=== PATIENT | female | born 1975 | race American Indian/Alaskan Native ===

== ENCOUNTER 2016-07-30 03:20 | Emergency (ER) | payer MEDICAID ==
[2016-07-30 03:20] VITALS: BMI 29.7
[2016-07-30 03:39] VITALS: TEMP 98.1
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
[2016-07-30 05:05] VITALS: BP 130/80; PULSE 80; RESP 14
[2016-07-30 06:23] VITALS: O2SAT 97
== END 2016-07-30 05:05 | disposition home or self-care (01) ==
LOC: C.ER 03:20
DX: S80.12XA Contusion of left lower leg, initial encounter (principal); W50.1XXA Accidental kick by another person, initial encounter; Y93.9 Activity, unspecified; Y92.9 Unspecified place or not applicable

== ENCOUNTER 2016-09-15 01:17 | Emergency (ER) | payer MEDICAID ==
[2016-09-15 01:18] VITALS: BMI 29.7
[2016-09-15 01:42] VITALS: O2SAT 100
--- NOTE | 2016-09-15 01:59 | C.PDOC ---
History Of Present Illness Pt with chest pain which started yesterday. Dull aching non radiating discomfort. No f/c/n/v/ Speaking in complete sentence. Time Seen by Provider: 09/15/16 01:58 Chief Complaint (Nursing): Chest Pain History Per: Patient History/Exam Limitations: no limitations Onset/Duration Of Symptoms: Days (1) Current Symptoms Are (Timing): Still Present Context: Other Severity: Moderate Pain Scale Rating Of: 4 Quality: Dull, Aching Associated Symptoms: denies: Nausea, Dyspnea Modifying Factors: None Exacerbating Factors: None Alleviating Factors: None Recent travel outside of the [place]: No Additional History Per: Patient Past Medical History Reviewed: Historical Data, Nursing Documentation, Vital Signs Vital Signs: Last Vital Signs Temp 98.2 F 09/15/16 05:00 Pulse 68 09/15/16 05:00 Resp 16 09/15/16 05:00 BP 106/66 09/15/16 05:00 Pulse Ox 100 09/15/16 05:58 - Medical History PMH: Asthma - [facility] Procedures OTHER SKIN & SUBQ I D (06/30/13) Family History: States: No Known Family Hx - Social History Hx Tobacco Use: No Hx Alcohol Use: No Hx Substance Use: No - Immunization History Hx Tetanus Toxoid Vaccination: No Hx Influenza Vaccination: No Hx Pneumococcal Vaccination: No Review Of Systems Constitutional: Negative for: Fever, Chills Eyes: Negative for: Redness ENT: Negative for: Throat Pain Cardiovascular: Positive for: Chest Pain Respiratory: Negative for: Shortness of Breath Gastrointestinal: Negative for: Nausea, Vomiting, Abdominal Pain Genitourinary: Negative for: Dysuria Musculoskeletal: Negative for: Back Pain Skin: Negative for: Rash, Lesions, Jaundice Neurological: Negative for: Weakness Psych: Positive for: Anxiety Physical Exam - Physical Exam Appears: Non-toxic, No Acute Distress Skin: Warm, Dry Head: Normacephalic Eye(s): bilateral: Normal Inspection Oral Mucosa: Moist Neck: Supple Chest: Symmetrical Cardiovascular: Rhythm Regular Respiratory: No Rales, No Rhonchi, No Wheezing Gastrointestinal/Abdominal: Soft, No Tenderness, No Distention Back: Normal Inspection Extremity: Normal ROM Extremity: Bilateral: Atraumatic Pulses: Left Dorsalis Pedis: Normal, Right Dorsalis Pedis: Normal Neurological/Psych: Oriented x3, Normal Speech, Normal Cognition Gait: Steady ED Course And Treatment - Laboratory Results Result Diagrams: 09/15/16 02:39 09/15/16 02:39 ECG: Interpreted By Me, Viewed By Me ECG Rhythm: Sinus Rhythm (69), Nonspecific Changes O2 Sat by Pulse Oximetry: 100 Pulse Ox Interpretation: Normal - Radiology CXR: Interpreted by Me, Viewed By Me CXR Interpretation: No: Infiltrates, Fracture, Pnemothorax Progress Note: cardiac work up. No ASA given as pt is allergic(throat closing) Reevaluation Time: 05:57 Reassessment Condition: Improved Medical Decision Making Medical Decision Making: I considered the following diagnoses: acute coronary syndrome, pulmonary embolism, lower respiratory infection, aortic dissection/aneurysm, pneumothorax , pericarditis, esophagitis/GERD, zoster and esophageal rupture but found them to be unlikely based on the history, physical exam, and diagnostics. My conclusions regarding the unlikely diagnoses were based on: the absence of significant EKG abnormalities, the lack of suggestive x-ray findings, the absence of significant abnormalities on cardiac monitoring, the absence of asymmetric pulses. Pt is cp free and wants to go home Upon provider reevaluation patient is feeling better, is medically stable, and requires no further treatment in the ED at this time. Patient will be discharged home . Counseling was provided and all questions were answered regarding diagnosis and need for follow up with Dr Montes De Oca. There is agreement to discharge plan. Return if symptoms persist or worsen Disposition Counseled Patient/Family Regarding: Studies Performed, Diagnosis, Need For Followup - Disposition Referrals: Teddy Montes De Oca MD [Staff Provider] - Disposition: HOME/ ROUTINE Disposition Time: 01:59 Condition: FAIR Instructions: Chest Pain (DC) - Clinical Impression Clinical Impression: Chest pain
[2016-09-15 02:43] LABS: BASO % 0.6 % (0.0-2.0); EOS # 0.1 K/uL (0.0-0.7); EOS % 2.2 % (0.0-4.0); HEMATOCRIT 32.4 % (34.0-47.0); LYMPH # 1.4 K/uL (1.0-4.3); LYMPH % 34.8 % (20.0-40.0); MEAN CELL VOLUME 69.2 fL (81.0-99.0); MEAN CORPUSCULAR HEMOGLOBIN 21.5 pg (27.0-31.0); MEAN CORPUSCULAR HGB CONC 31.1 g/dL (33.0-37.0); MEAN PLATELET VOLUME 7.6 fL (7.2-11.7); MONO # 0.6 K/uL (0.0-0.8); MONO % 13.7 % (0.0-10.0); RED CELL DISTRIBUTION WIDTH 14.8 % (11.5-14.5); WHITE BLOOD COUNT 4.1 K/uL (4.8-10.8)
[2016-09-15 02:53] LABS: CHLORIDE 100 mmol/L (98-107); SODIUM 136 mmol/L (132-148)
[2016-09-15 02:54] LABS: POTASSIUM 4.2 mmol/L (3.6-5.2)
[2016-09-15 02:56] LABS: ALB/GLOB RATIO 1.2 (1.0-2.1); ALKALINE PHOSPHATASE 53 U/L (38-126); ALT/SGPT 20 U/L (9-52); AST/SGOT 18 U/L (14-36); BILIRUBIN,TOTAL 0.4 mg/dL (0.2-1.3); BLOOD UREA NITROGEN 18 mg/dL (7-17); CARBON DIOXIDE 27 mmol/L (22-30); GFR AFRICAN-AMERICAN > 60; TOTAL PROTEIN 6.9 g/dL (6.3-8.3)
[2016-09-15 02:57] LABS: CALCIUM 8.3 mg/dl (8.6-10.4); GLUCOSE,RANDOM 74 mg/dL (65-105)
[2016-09-15 04:16] VITALS: RESP 16
[2016-09-15 04:36] LABS: RBC URINE 2 /hpf (0-3); URINE BILIRUBIN NEGATIVE (NEGATIVE); URINE BLOOD NEGATIVE (NEGATIVE); URINE COLOR Yellow (YELLOW); URINE GLUCOSE (UA) NORMAL (Normal); URINE KETONE NEGATIVE (NEGATIVE); URINE LEUKOCYTE ESTERASE NEG Leu/uL (Negative); URINE PROTEIN NEGATIVE (NEGATIVE); WBC URINE 2 /hpf (0-5)
[2016-09-15 05:11] VITALS: BP 106/66; PULSE 68; TEMP 98.2
--- NOTE | 2016-09-15 12:41 | RAD ---
PROCEDURE: CHEST RADIOGRAPH, 1 VIEW HISTORY: chest pain COMPARISON: Comparison chest 12/01/2015 FINDINGS: LUNGS: Clear. PLEURA: No pneumothorax or pleural fluid seen. CARDIOVASCULAR: Normal. OSSEOUS STRUCTURES: No significant abnormalities. VISUALIZED UPPER ABDOMEN: Normal. OTHER FINDINGS: None. IMPRESSION: No active disease.
--- NOTE | 2016-09-21 17:01 | CARD ---
APPROVED REPORT EKG Measurement Heart [id number] NH 108P50 [id number] <Conclusion> Sinus rhythm with short NH Borderline ECG
== END 2016-09-15 06:13 | disposition home or self-care (01) ==
LOC: C.ER 01:17
DX: R07.9 Chest pain, unspecified (principal)

== ENCOUNTER 2016-12-01 20:33 | Emergency (ER) | payer MEDICAID ==
[2016-12-01 20:34] VITALS: BMI 29.7
[2016-12-01 20:47] VITALS: TEMP 97.5
[2016-12-01 21:23] LABS: BASO % 0.1 % (0.0-2.0); EOS # 0.1 K/uL (0.0-0.7); EOS % 1.6 % (0.0-4.0); HEMATOCRIT 34.6 % (34.0-47.0); LYMPH # 1.1 K/uL (1.0-4.3); LYMPH % 26.3 % (20.0-40.0); MEAN CELL VOLUME 69.3 fL (81.0-99.0); MEAN CORPUSCULAR HEMOGLOBIN 21.9 pg (27.0-31.0); MEAN CORPUSCULAR HGB CONC 31.7 g/dL (33.0-37.0); MEAN PLATELET VOLUME 8.1 fL (7.2-11.7); MONO # 0.4 K/uL (0.0-0.8); MONO % 8.6 % (0.0-10.0); RED CELL DISTRIBUTION WIDTH 15.3 % (11.5-14.5); WHITE BLOOD COUNT 4.3 K/uL (4.8-10.8)
[2016-12-01 21:30] LABS: RBC URINE 1 /hpf (0-3); URINE BACTERIA RARE (<OCC); URINE BILIRUBIN NEGATIVE (NEGATIVE); URINE BLOOD NEGATIVE (NEGATIVE); URINE COLOR Yellow (YELLOW); URINE GLUCOSE (UA) NORMAL (Normal); URINE KETONE NEGATIVE (NEGATIVE); URINE LEUKOCYTE ESTERASE NEG Leu/uL (Negative); URINE PROTEIN NEGATIVE (NEGATIVE); URINE UROBILINOGEN NORMAL mg/dL (0.2-1.0); WBC URINE 1 /hpf (0-5)
[2016-12-01 21:33] LABS: CHLORIDE 98 mmol/L (98-107); SODIUM 139 mmol/L (132-148)
[2016-12-01 21:34] LABS: POTASSIUM 3.8 mmol/L (3.6-5.2)
[2016-12-01 21:35] LABS: GFR AFRICAN-AMERICAN > 60
[2016-12-01 21:36] LABS: ALB/GLOB RATIO 1.1 (1.0-2.1); ALKALINE PHOSPHATASE 53 U/L (38-126); ALT/SGPT 27 U/L (9-52); AST/SGOT 21 U/L (14-36); BILIRUBIN,TOTAL 0.7 mg/dL (0.2-1.3); BLOOD UREA NITROGEN 12 mg/dL (7-17); CALCIUM 8.9 mg/dl (8.6-10.4); CARBON DIOXIDE 29 mmol/L (22-30); GLUCOSE,RANDOM 92 mg/dL (65-105); TOTAL PROTEIN 7.3 g/dL (6.3-8.3)
--- NOTE | 2016-12-01 22:06 | C.PDOC ---
History Of Present Illness 41 year old female presents to the ER with a complaint of right sided, anterior shoulder pain for the past 1 week that radiates down the right arm and worsens with movement. Patient also reports having an episode of sharp left sided chest pain [place] the [place]; pain was not associated twith any other symptoms, and resolved after several seconds. Patient denies SOB, cough, fever, palpitations, Hx of cardiac disease (herself/her family), use of OCPs, recent surgery/airplane travel/ immobilization. Time Seen by Provider: 12/01/16 20:46 Chief Complaint (Nursing): Chest Pain History Per: Patient History/Exam Limitations: no limitations Onset/Duration Of Symptoms: Days Current Symptoms Are (Timing): Still Present Severity: Mild Quality: Sharp Associated Symptoms: denies: Nausea, Dyspnea, Diaphoresis, Syncope Modifying Factors: None Exacerbating Factors: Movement Alleviating Factors: None Recent travel outside of the [place]: No Past Medical History Reviewed: Historical Data, Nursing Documentation, Vital Signs Vital Signs: Last Vital Signs Temp 97.5 F L 12/01/16 20:45 Pulse 75 12/01/16 22:37 Resp 16 12/01/16 22:37 BP 106/69 12/01/16 22:37 Pulse Ox 98 12/01/16 22:37 - Medical History PMH: Asthma Surgical History: No Surg Hx - [facility] Procedures OTHER SKIN & SUBQ I D (06/30/13) Family History: States: No Known Family Hx - Social History Hx Tobacco Use: No Hx Alcohol Use: No Hx Substance Use: No - Immunization History Hx Tetanus Toxoid Vaccination: No Hx Influenza Vaccination: No Hx Pneumococcal Vaccination: No Review Of Systems Except As Marked, All Systems Reviewed And Found Negative. Constitutional: Negative for: Fever, Chills Cardiovascular: Positive for: Chest Pain. Negative for: Palpitations Respiratory: Negative for: Cough, Shortness of Breath Gastrointestinal: Negative for: Nausea, Vomiting, Abdominal Pain, Diarrhea Musculoskeletal: Positive for: Shoulder Pain, Arm Pain Skin: Negative for: Rash Neurological: Negative for: Weakness, Numbness Physical Exam - Physical Exam Appears: Well, Non-toxic, No Acute Distress Skin: Normal Color, Warm, Dry, No Rash Head: Normacephalic Oral Mucosa: Moist Chest: Symmetrical, No Tenderness Cardiovascular: Rhythm Regular Respiratory: Normal Breath Sounds, No Rales, No Rhonchi, No Wheezing Gastrointestinal/Abdominal: Normal Exam, Bowel Sounds, Soft, No Tenderness Extremity: Tenderness (Mildly TTP at right anterior shoulder, worsens with movement of shoulder), No Calf Tenderness, Capillary Refill (< 2 sec all digits) , No Deformity, No Swelling, Other ((-) swelling/erythyema) Extremity: Bilateral: Normal Color And Temperature Pulses: Left Radial: Normal, Right Radial: Normal Neurological/Psych: Oriented x3, Normal Motor, Normal Sensation ED Course And Treatment - Laboratory Results Result Diagrams: 12/01/16 21:20 12/01/16 21:20 ECG: Interpreted By Me, Viewed By Me (sinus rhythm 70 bpm, normal axis, no acute ST/T wave changes) ECG Interpretation: Normal O2 Sat by Pulse Oximetry: 97 (Room air) Pulse Ox Interpretation: Normal - Radiology CXR: Interpreted by Me, Viewed By Me CXR Interpretation: Yes: No Acute Disease. No: Infiltrates - Other Rad right shoulder Xray X-Ray: Interpreted by Me, Viewed By Me (no fractures/dislocations) Progress Note: Blood work, CXR and right shoulder Xray ordered and reviewed. Patient given PO tylenol + flexeril. Reevaluation Time: 22:25 Reassessment Condition: Improved (Patient reassessed, pain has improved and patient states she is feeling better. Xrays (-) for acute bony injury, and EKG WNL. Blood work, including d-dimer, unremarkable. Patient discharged home with Rxs for tylenol and flexeril. He was instructed to follow up with orthopedics within 1 week, and she understands she should return to ED if symptoms worsen.) Disposition Counseled Patient/Family Regarding: Studies Performed, Diagnosis, Need For Followup, Rx Given - Disposition Referrals: Shirin Abraham MD [Staff Provider] - [facility] [Outside] Teddy Montes De Oca MD [Staff Provider] - Disposition: HOME/ ROUTINE Disposition Time: 22:25 Condition: STABLE Additional Instructions: FOLLOW UP WITH YOUR DOCTOR IN 1-2 DAYS, AND WITH ORTHOPEDICS WITHIN 1 WEEK USE MEDICATIONS NEEDED RETURN TO ER IF SYMPTOMS WORSEN Prescriptions: Acetaminophen [Tylenol 325mg tab] 650 mg PO Q6 PRN #30 tab PRN Reason: pain/fever Cyclobenzaprine [Cyclobenzaprine HCl] 10 mg PO BID PRN #15 tab PRN Reason: Muscle Spasm Instructions: Shoulder Sprain (ED), Noncardiac Chest Pain (ED) Forms: [facility] (Indian) Print Language: TANZANIAN - POA Present On Arrival: None - Clinical Impression Clinical Impression: Right shoulder pain, Non-cardiac chest pain - Scribe Statement The provider has reviewed the documentation as recorded by the Scribe Hector Moreno All medical record entries made by the Norbertoibe were at my direction and personally dictated by me. I have reviewed the chart and agree that the record accurately reflects my personal performance of the history, physical exam, medical decision making, and the department course for this patient. I have also personally directed, reviewed, and agree with the discharge instructions and disposition.
[2016-12-01 22:38] VITALS: BP 106/69; PULSE 75; RESP 16
--- NOTE | 2016-12-02 08:23 | RAD ---
HISTORY: cp COMPARISON: Chest x-ray performed 09/15/16 TECHNIQUE: Chest, one view. FINDINGS: Examination limited by habitus. LUNGS: No focal consolidation. Please note that chest x-ray has limited sensitivity for the detection of pulmonary masses. PLEURA: No significant pleural effusion identified. No definite pneumothorax . CARDIOVASCULAR: The cardiomediastinal silhouette appears within normal limits of size. OSSEOUS STRUCTURES: No acute osseous abnormality identified. VISUALIZED UPPER ABDOMEN: Unremarkable. OTHER FINDINGS: None. IMPRESSION: No focal consolidation, significant pleural effusion, or definite pneumothorax identified.
--- NOTE | 2016-12-02 08:24 | RAD ---
PROCEDURE: Radiographs of the Right Shoulder HISTORY: right shoulder pain COMPARISON: None available. FINDINGS: BONES: No acute displaced fracture. The distal clavicle and underlying ribs appear intact. JOINTS: No acute dislocation. SOFT TISSUES: Soft tissues appear unremarkable. No evidence of radiopaque foreign body. IMPRESSION: No acute displaced fracture or dislocation evident. If symptoms persist or if there is continued clinical concern, x-ray follow-up in 7-10 days should be considered.
--- NOTE | 2016-12-04 17:41 | CARD ---
APPROVED REPORT EKG Measurement Heart [id number] GA 110P56 [id number] <Conclusion> Sinus rhythm with short GA Possible Left atrial enlargement Borderline ECG
[2016-12-06 17:12] VITALS: O2SAT 97
== END 2016-12-01 22:37 | disposition home or self-care (01) ==
LOC: C.ER 20:33
DX: R07.89 Other chest pain (principal); M25.511 Pain in right shoulder

== ENCOUNTER 2017-01-15 20:01 | Emergency (ER) | payer MEDICAID ==
[2017-01-15 20:01] VITALS: BMI 29.7
[2017-01-15 20:16] VITALS: O2SAT 100
[2017-01-15 20:36] LABS: HEMATOCRIT 34.9 % (34.0-47.0); MEAN CELL VOLUME 69.8 fL (81.0-99.0); MEAN CORPUSCULAR HEMOGLOBIN 22.1 pg (27.0-31.0); MEAN CORPUSCULAR HGB CONC 31.7 g/dL (33.0-37.0); MEAN PLATELET VOLUME 7.9 fL (7.2-11.7); RED CELL DISTRIBUTION WIDTH 14.6 % (11.5-14.5); WHITE BLOOD COUNT 4.4 K/uL (4.8-10.8)
[2017-01-15 20:47] LABS: CHLORIDE 98 mmol/L (98-107); POTASSIUM 4.5 mmol/L (3.6-5.2); SODIUM 137 mmol/L (132-148)
[2017-01-15 20:50] LABS: ALB/GLOB RATIO 1.1 (1.0-2.1); ALKALINE PHOSPHATASE 45 U/L (38-126); ALT/SGPT 23 U/L (9-52); AST/SGOT 23 U/L (14-36); BILIRUBIN,TOTAL 0.7 mg/dL (0.2-1.3); BLOOD UREA NITROGEN 15 mg/dL (7-17); CALCIUM 8.9 mg/dl (8.6-10.4); CARBON DIOXIDE 25 mmol/L (22-30); GFR AFRICAN-AMERICAN > 60; GLUCOSE,RANDOM 86 mg/dL (65-105); TOTAL PROTEIN 7.9 g/dL (6.3-8.3)
[2017-01-15] MEDS ORDERED: Sodium Chloride 0.9% 1,000 ML IV ONE (20:58)
[2017-01-15 20:59] LABS: RBC URINE 1 /hpf (0-3); URINE BILIRUBIN NEGATIVE (NEGATIVE); URINE BLOOD NEGATIVE (NEGATIVE); URINE COLOR Yellow (YELLOW); URINE GLUCOSE (UA) NORMAL (Normal); URINE KETONE NEGATIVE (NEGATIVE); URINE LEUKOCYTE ESTERASE NEG Leu/uL (Negative); URINE PROTEIN NEGATIVE (NEGATIVE); URINE UROBILINOGEN NORMAL mg/dL (0.2-1.0); WBC URINE < 1 /hpf (0-5)
--- NOTE | 2017-01-15 21:05 | C.PDOC ---
History Of Present Illness Patient gave a history ofon and off abd pain in the upper abd area with accompanying symptom of difficulty swallowing.Denies any chest pain.No n/V. No diarrhea.. Chief Complaint (Nursing): Abdominal Pain History Per: Patient History/Exam Limitations: no limitations Onset/Duration Of Symptoms: Days, Intermittent Episodes Current Symptoms Are (Timing): Still Present Severity: Moderate Pain Scale Rating Of: 3 Location Of Pain/Discomfort: Epigastric Radiation Of Pain To:: None Quality Of Discomfort: Burning, Other (difficultyswallowing) Associated Symptoms: denies: Fever, Chills, Nausea, Vomiting, Diarrhea, Loss Of Appetite, Back Pain, Constipation, Urinary Symptoms Exacerbating Factors: Food. denies: Cough Alleviating Factors: denies: None Last Bowel Movement: Today Recent travel outside of the [place]: No Additional History Per: Patient Abnormal Vaginal Bleeding: No Past Medical History Vital Signs: Last Vital Signs Temp 97.8 F 01/16/17 00:03 Pulse 60 01/16/17 00:03 Resp 20 01/16/17 00:03 BP 110/74 01/16/17 00:03 Pulse Ox 100 01/16/17 00:03 - Medical History PMH: Asthma Denies: Chronic Kidney Disease Surgical History: No Surg Hx - [facility] Procedures OTHER SKIN & SUBQ I D (06/30/13) Family History: States: Unknown Family Hx - Social History Hx Tobacco Use: No Hx Alcohol Use: No Hx Substance Use: No - Immunization History Hx Tetanus Toxoid Vaccination: No Hx Influenza Vaccination: No Hx Pneumococcal Vaccination: No Review Of Systems Constitutional: Negative for: Fever, Chills, Sweats, Weakness, Malaise, Weight loss Eyes: Negative for: Pain, Vision Change, Conjunctivae Inflammation Cardiovascular: Negative for: Chest Pain, Palpitations, Orthopnea, Paroxysmal Noc. Dyspnea Respiratory: Negative for: Cough, Shortness of Breath, Hemoptysis, SOB with Excertion Gastrointestinal: Positive for: Other (occa. difficulty swallowing). Negative for: Nausea, Vomiting, Abdominal Pain Genitourinary: Negative for: Dysuria, Frequency, Incontinence Musculoskeletal: Negative for: Neck Pain, Shoulder Pain, Arm Pain Skin: Negative for: Rash, Lesions Neurological: Negative for: Weakness, Numbness, Incoordination, Change in Speech Psych: Negative for: Anxiety, Depression, Psychosis, Suicidal ideation Physical Exam - Physical Exam Appears: Well, Non-toxic, No Acute Distress Skin: Normal Color, Warm, Dry Eye(s): bilateral: Normal Inspection, PERRL, EOMI Nose: Normal Oral Mucosa: Moist, No Dry Tongue: Normal Appearing Teeth: Normal Dentition Gingiva: Normal Appearing Throat: Normal Neck: Normal Chest: Symmetrical, No Deformity, No Tenderness Cardiovascular: Rhythm Regular Respiratory: Normal Breath Sounds Gastrointestinal/Abdominal: Tenderness (epigatric area tenderness), No Organomegaly, No Distention, No Guarding, No Rebound Back: Normal Inspection Extremity: Normal ROM ED Course And Treatment - Laboratory Results Result Diagrams: 01/15/17 20:31 01/15/17 20:31 O2 Sat by Pulse Oximetry: 100 Disposition Counseled Patient/Family Regarding: Diagnosis - Disposition Referrals: [facility] [Outside] Disposition: HOME/ ROUTINE Disposition Time: 00:22 Condition: STABLE Prescriptions: Dicyclomine [Dicyclomine HCl] 10 mg PO TID #14 cap Famotidine [Pepcid] 20 mg PO BID #20 tab Instructions: Abdominal Pain (ED), Gastritis (GEN) Forms: [facility] (Honduran) - POA Present On Arrival: None - Clinical Impression Clinical Impression: Abdominal pain, Gastritis
[2017-01-15] MEDS ORDERED: Sodium Chloride 0.9% 1,000 ML ONE (21:08)
[2017-01-15] MEDS ORDERED: Iohexol 240 (50 ml) ONE (21:29)
[2017-01-15] MEDS ORDERED: Iohexol 240 (50 ml) PO ONE (21:30)
[2017-01-15] MEDS ORDERED: Iodixanol 320 MG/ML 100 ML BOTTLE IV ONE (21:32)
--- NOTE | 2017-01-16 00:04 | CT ---
EXAM: CT Abdomen and Pelvis With Intravenous Contrast CLINICAL HISTORY: 41 years old, female; Pain; Abdominal pain; Epigastric; Other: SOB; Additional info: Upper abd pain/ tendeness TECHNIQUE: Axial computed tomography images of the abdomen and pelvis with intravenous contrast. All CT scans at this facility use one or more dose reduction techniques, viz.: automated exposure control; ma/kV adjustment per patient size (including targeted exams where dose is matched to indication; i.e. head); or iterative reconstruction technique. Coronal and sagittal reformatted images were created and reviewed. CONTRAST: 100 mL of visipaque 320 administered intravenously. COMPARISON: No relevant prior studies available. Reference is made to a report from 06/26/2012. FINDINGS: Lower thorax: The bilateral lung bases are clear. ABDOMEN: Liver: Steatosis. Gallbladder and bile ducts: The gallbladder is decompressed. No calcified stones. No significant intra- or extrahepatic biliary ductal dilation. Pancreas: Enhances homogeneously. No ductal dilation. No discrete mass. Spleen: No acute findings. Adrenals: No acute findings. Kidneys and ureters: No acute findings. No hydronephrosis or renal calculi. No discrete solid mass. PELVIS: Bladder: No acute findings. Reproductive: No acute findings. Appendix: The air filled appendix is of normal caliber (series 2, image 85) . ABDOMEN and PELVIS: Stomach and bowel: Oral contrast extends to the level of the distal small bowel, without obstruction. No mucosal thickening. Peritoneum: No significant fluid collection. No free air. Lymph nodes: No pathologically enlarged lymph nodes. Vasculature: Unremarkable. Bones: No acute fracture. IMPRESSION: Fatty infiltration of the liver. Otherwise, unremarkable CT examination of the abdomen and pelvis, as detailed above. EXAM: CT Chest With Intravenous Contrast CLINICAL HISTORY: 41 years old, female; Pain; Abdominal pain; Epigastric; Other: SOB; Additional info: Upper abd pain/ tendeness TECHNIQUE: Axial computed tomography images of the chest with intravenous contrast. All CT scans at this facility use one or more dose reduction techniques, viz.: automated exposure control; ma/kV adjustment per patient size (including targeted exams where dose is matched to indication; i.e. head); or iterative reconstruction technique. Coronal and sagittal reformatted images were created and reviewed. CONTRAST: 100 mL of visipaque 320 administered intravenously. COMPARISON: None FINDINGS: Lungs: No mass. No consolidation. Pleural spaces: No significant effusion. No pneumothorax. Heart: No cardiomegaly. No significant pericardial effusion. Vasculature: No aortic aneurysm. Lymph nodes: No enlarged lymph nodes. Bones: No acute fracture. IMPRESSION: No acute findings to account for patient's symptoms, as detailed above.
[2017-01-16 00:05] VITALS: BP 110/74; PULSE 60; RESP 20; TEMP 97.8
== END 2017-01-16 00:33 | disposition home or self-care (01) ==
LOC: C.ER 20:01
DX: K29.70 Gastritis, unspecified, without bleeding (principal); R10.9 Unspecified abdominal pain
CPT/HCPCS: 71260; 74177; 80053; 81001; 83690; 84703; 85027; 96374; 99284; J7040; Q9966; Q9967

== ENCOUNTER 2017-02-04 09:40 | Emergency (ER) | payer MEDICAID ==
[2017-02-04 09:40] VITALS: BMI 29.7
[2017-02-04 09:52] VITALS: BP 104/72; PULSE 81; RESP 18; TEMP 98; O2SAT 100
--- NOTE | 2017-02-04 10:25 | C.PDOC ---
History Of Present Illness 41 year old female presents to the ED for evaluation of new onset left hand swelling x 3 days. Patient states she wears cotton gloves overlying latex gloves at work. Patient suspects possible allergen exposure while at new job. Patient states symptoms resolve at night but recurs after work day. Patient denies trauma or other associated symptoms. Patient has history of multiple foot allergies. NEW ONSET L HAND SWELL X 3 DAYS. PS WEARS COTTON GLOVES W OVERLYING LATEX GLOVES @ WORK. POSSIBLE ALLERGEN EXPOSURE WHILE AT NEW JOB? RESOLVES AT NIGHT BUT RECURS AFTER WORK DAY. NO TRAUMA, OTHER ASSOC SX. HO MULT FOOT ALLERGIES EXAM NAD EXT L HAND +MOD SWELL DORSAL TO WRIST. NO FOCAL TEND. LIMTIED ROM DUE TO PAIN FROM SWELLING. ATRAUM SKIN INTACT NO ERYTHEMA MDM ADVISED TO TRY NONLATEX GLOVES. PREDNISONE Time Seen by Provider: 02/04/17 10:13 Chief Complaint (Nursing): Finger,Hand,&Wrist History Per: Patient History/Exam Limitations: no limitations Onset/Duration Of Symptoms: Days (3), Sudden Onset Current Symptoms Are (Timing): Still Present Additional History Per: Patient Past Medical History Reviewed: Historical Data, Nursing Documentation, Vital Signs Vital Signs: Last Vital Signs Temp 98 F 02/04/17 09:50 Pulse 81 02/04/17 09:50 Resp 18 02/04/17 09:50 BP 104/72 02/04/17 09:50 Pulse Ox 100 02/04/17 10:27 - Medical History PMH: Asthma Surgical History: No Surg Hx - [facility] Procedures OTHER SKIN & SUBQ I D (06/30/13) Family History: States: Unknown Family Hx - Social History Hx Tobacco Use: No Hx Alcohol Use: No Hx Substance Use: No - Immunization History Hx Tetanus Toxoid Vaccination: No Hx Influenza Vaccination: No Hx Pneumococcal Vaccination: No Review Of Systems Musculoskeletal: Positive for: Hand Pain (left ) Physical Exam - Physical Exam Appears: Non-toxic, No Acute Distress Skin: Normal Color, Warm, Dry, Other (skin intact, no erythema ) Head: Atraumatic, Normacephalic Eye(s): bilateral: Normal Inspection Oral Mucosa: Moist Neck: Supple Extremity: No Normal ROM (limited in left hand secondat to pain from swelling ) , No Tenderness (focal ), Capillary Refill (less than 2 seconds ), Swelling ( moderate, to dorsal aspect of left wrist ) Extremity: Left: Atraumatic Neurological/Psych: Oriented x3, Normal Speech, Normal Cognition Gait: Steady ED Course And Treatment O2 Sat by Pulse Oximetry: 100 (on RA) Pulse Ox Interpretation: Normal Progress Note: Prednisone PO administered. Medical Decision Making Medical Decision Making: ADVISED TO TRY NONLATEX GLOVES. 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 - Scribe Statement The provider has reviewed the documentation as recorded by the Scribe Provider Attestation: All medical record entries made by the Scribe were at my direction and personally dictated by me. I have reviewed the chart and agree that the record accurately reflects my personal performance of the history, physical exam, medical decision making, and the department course for this patient. I have also personally directed, reviewed, and agree with the discharge instructions and disposition.
== END 2017-02-04 10:40 | disposition home or self-care (01) ==
LOC: C.ER 09:40
DX: L23.9 Allergic contact dermatitis, unspecified cause (principal)

== ENCOUNTER 2017-09-29 18:38 | Emergency (ER) | payer MEDICAID ==
[2017-09-29 18:39] VITALS: BMI 29.7
[2017-09-29 18:44] VITALS: PULSE 90; RESP 20; TEMP 98.7; O2SAT 100
[2017-09-29 19:21] VITALS: BP 101/66
--- NOTE | 2017-09-29 19:22 | C.PDOC ---
History Of Present Illness 42 year old female presents to the emergency department with complaints of left shoulder pain and right elbow pain. Patient reports that a gate door fell on her left shoulder today. She also complains of right elbow pain which has persisted for the past month after hitting it. She complains of pain upon extension of the elbow. No change in sensation. No head injury. RIght hand dominant. 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 Time Seen by Provider: 09/29/17 19:01 Chief Complaint (Nursing): Upper Extremity Problem/Injury History Per: Patient History/Exam Limitations: no limitations Onset/Duration Of Symptoms: Hrs Current Symptoms Are (Timing): Still Present Quality: "Pain" Exacerbating Factor(s): Movement Past Medical History Reviewed: Historical Data, Nursing Documentation, Vital Signs Vital Signs: Last Vital Signs Temp 98.7 F 09/29/17 18:42 Pulse 90 09/29/17 18:42 Resp 20 09/29/17 18:42 BP 101/66 09/29/17 19:21 Pulse Ox 100 09/29/17 19:25 - Medical History PMH: Asthma Denies: Chronic Kidney Disease Surgical History: No Surg Hx - [facility] Procedures OTHER SKIN & SUBQ I D (06/30/13) Family History: States: No Known Family Hx - Social History Hx Tobacco Use: No Hx Alcohol Use: No Hx Substance Use: No - Immunization History Hx Tetanus Toxoid Vaccination: No Hx Influenza Vaccination: No Hx Pneumococcal Vaccination: No Review Of Systems Except As Marked, All Systems Reviewed And Found Negative. Musculoskeletal: Positive for: Shoulder Pain (left), Arm Pain (right) Physical Exam - Physical Exam Appears: Well, Non-toxic, No Acute Distress Skin: Normal Color, Warm, Dry Head: Atraumatic, Normacephalic Eye(s): bilateral: Normal Inspection, EOMI Nose: Normal Oral Mucosa: Moist Neck: Normal, Supple Chest: Symmetrical Respiratory: No Accessory Muscle Use Extremity: Normal ROM, Tenderness ((+) right posterior elbow tenderness (+) left anterior shoulder tenderness), Capillary Refill (<2 sec), No Swelling Extremity: Bilateral: Atraumatic, Normal Color And Temperature, Normal ROM Pulses: Left Radial: Normal, Right Radial: Normal Neurological/Psych: Oriented x3, Normal Speech, Normal Cognition, Normal Motor ( 5/5 against resistance), Normal Sensation ED Course And Treatment O2 Sat by Pulse Oximetry: 100 (RA) Pulse Ox Interpretation: Normal - Other Rad Right elbow XR X-Ray: Interpreted by Me, Viewed By Me Interpretation: No fx or dislocation Left shoulder XR X-Ray: Interpreted by Me, Viewed By Me Interpretation: no fx or dislocation Progress Note: Plan: Tylenol 650mg PO. Lyndon wrap applied on elbow. Instructed RICE and f/u with ortho in 1-2 days. Disposition - Disposition Referrals: Benson Tristan III, MD [Staff Provider] - Disposition: HOME/ ROUTINE Disposition Time: 18:20 Condition: STABLE Additional Instructions: Rest and ice the area. Follow up with PMD in 1-2 days. Return to ER if symptoms persist or worsen. 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 - Scribe Statement The provider has reviewed the documentation as recorded by the Scribe (Nate Alba) All medical record entries made by the Scribe were at my direction and personally dictated by me. I have reviewed the chart and agree that the record accurately reflects my personal performance of the history, physical exam, medical decision making, and the department course for this patient. I have also personally directed, reviewed, and agree with the discharge instructions and disposition.
--- NOTE | 2017-09-29 19:23 | C.PDOC ---
Time Seen by Provider: 09/29/17 19:01 Chief Complaint (Nursing): Upper Extremity Problem/Injury Past Medical History Vital Signs: Last Vital Signs Temp 98.7 F 09/29/17 18:42 Pulse 90 09/29/17 18:42 Resp 20 09/29/17 18:42 BP 101/66 09/29/17 19:21 Pulse Ox 100 09/29/17 18:42 - Medical History PMH: Asthma Denies: Chronic Kidney Disease - [facility] Procedures OTHER SKIN & SUBQ I D (06/30/13) Family History: States: Unknown Family Hx - Social History Hx Tobacco Use: No Hx Alcohol Use: No Hx Substance Use: No - Immunization History Hx Tetanus Toxoid Vaccination: No Hx Influenza Vaccination: No Hx Pneumococcal Vaccination: No ED Course And Treatment O2 Sat by Pulse Oximetry: 100 Disposition - Disposition Referrals: Benson Tristan III, MD [Staff Provider] - Disposition: HOME/ ROUTINE Disposition Time: 19:22 Additional Instructions: Rest and ice the area. Follow up with PMD in 1-2 days. Return to ER if symptoms persist or worsen. Instructions: Shoulder Sprain
--- NOTE | 2017-09-30 09:30 | RAD ---
PROCEDURE: Radiographs of the Left Shoulder HISTORY: trauma COMPARISON: No prior. FINDINGS: BONES: Normal. No fracture. JOINTS: Normal. Glenohumeral and acromioclavicular joints preserved. No osteoarthritis. SOFT TISSUES: Normal. OTHER FINDINGS: None. IMPRESSION: Normal radiographs of the left shoulder.
--- NOTE | 2017-09-30 09:31 | RAD ---
PROCEDURE: Radiographs of the right elbow. HISTORY: trauma COMPARISON: No prior. FINDINGS: BONES: Normal. No fracture. JOINTS: Normal. No osteoarthritis. SOFT TISSUES: Normal. JOINT EFFUSION: None. OTHER FINDINGS: None. IMPRESSION: Unremarkable radiographs of the right elbow.
== END 2017-09-29 19:32 | disposition home or self-care (01) ==
LOC: C.ER 18:38
DX: S40.012A Contusion of left shoulder, initial encounter (principal); W20.8XXA Other cause of strike by thrown, projected or falling object, initial encounter; M77.9 Enthesopathy, unspecified

== ENCOUNTER 2018-01-30 09:30 | Emergency (ER) | payer MEDICAID ==
[2018-01-30 09:30] VITALS: BMI 29.7
--- NOTE | 2018-01-30 09:51 | C.PDOC ---
History Of Present Illness 42 y/o female presents to the ED with digitally and positionally reproducible chest pain for the last few days, worsened this morning. She denies recent fall or trauma. States she frequently lifts heavy objects. Denies associated SOB or palpitations. No sub-sternal chest pressure. Otherwise patient denies any fever, chills, diaphoresis, abdominal pain, nausea, vomiting, URI symptoms, or other associated complaints. Time Seen by Provider: 01/30/18 09:41 Chief Complaint (Nursing): Chest Pain History Per: Patient History/Exam Limitations: no limitations Onset/Duration Of Symptoms: Days Current Symptoms Are (Timing): Still Present Past Medical History Reviewed: Historical Data, Nursing Documentation, Vital Signs - Medical History PMH: Asthma Denies: Chronic Kidney Disease - [facility] Procedures OTHER SKIN & SUBQ I D (06/30/13) Family History: States: Unknown Family Hx - Social History Hx Tobacco Use: No Hx Alcohol Use: No Hx Substance Use: No - Immunization History Hx Tetanus Toxoid Vaccination: No Hx Influenza Vaccination: No Hx Pneumococcal Vaccination: No Review Of Systems Except As Marked, All Systems Reviewed And Found Negative. Constitutional: Negative for: Fever, Chills, Sweats Eyes: Negative for: Vision Change Cardiovascular: Positive for: Chest Pain. Negative for: Palpitations, Light Headedness Respiratory: Negative for: Cough, Shortness of Breath Gastrointestinal: Negative for: Nausea, Vomiting Musculoskeletal: Negative for: Arm Pain Skin: Negative for: Rash Neurological: Negative for: Weakness, Dizziness Physical Exam - Physical Exam Appears: Non-toxic, No Acute Distress Skin: Normal Color, Warm, Dry, No Rash Head: Atraumatic, Normacephalic Eye(s): bilateral: Normal Inspection, PERRL, EOMI Neck: Normal ROM Chest: No Deformity, Tenderness (Digitally reproducible pain to the bilateral parasternal areas, increased to left lower border), Other (No skin changes, no rash) Cardiovascular: Rhythm Regular, No Murmur Respiratory: Normal Breath Sounds, No Rales, No Rhonchi, No Wheezing Gastrointestinal/Abdominal: Soft, No Tenderness, No Distention, No Guarding Extremity: Bilateral: Atraumatic, Normal Color And Temperature, Normal ROM Pulses: Left Dorsalis Pedis: Normal, Right Dorsalis Pedis: Normal Neurological/Psych: Oriented x3, Normal Speech Additional Physical Exam Comments: Pony Trimmer: ED RN Maryann ED Course And Treatment ECG: Interpreted By Me ECG Rhythm: Sinus Rhythm ECG Interpretation: Normal Rate From EC O2 Sat by Pulse Oximetry: 100 (RA) Pulse Ox Interpretation: Normal Medical Decision Making Medical Decision Making: Plan: --EKG --Tylenol PO Impression: digitally and positionally reproducible b/l parasternal chest wall discomfort, no cardiac s/s, unlimited exercise tolerance frequently moving/lifting objects normal ekg c/w costochondritis. Disposition Doctor Will See Patient In The: Office Counseled Patient/Family Regarding: Studies Performed, Diagnosis - Disposition Referrals: Teddy Montes De Oca MD [Staff Provider] - Disposition: HOME/ ROUTINE Disposition Time: 09:51 Condition: GOOD Additional Instructions: tylenol 1000 mg every 6 hours as needed ice packs to the chest wall 1/2 hour per hour, nothing hot no heavy lifting for 1 week normal EKG today Instructions: Costochondritis, Chest Pain That Is Not Caused by the Heart (DC) Forms: [facility] (Australian) - Clinical Impression Clinical Impression: Chest wall discomfort - Scribe Statement The provider has reviewed the documentation as recorded by the Scribe (Marjan Marks) Provider Attestation: All medical record entries made by the Scribe were at my direction and personally dictated by me. I have reviewed the chart and agree that the record accurately reflects my personal performance of the history, physical exam, medical decision making, and the department course for this patient. I have also personally directed, reviewed, and agree with the discharge instructions and dis position.
[2018-01-30 09:52] VITALS: O2SAT 100
[2018-01-30 09:56] VITALS: BP 100/67; PULSE 70; RESP 18; TEMP 98
--- NOTE | 2018-01-31 17:49 | CARD ---
APPROVED REPORT Date of service: 01/30/2018 EKG Measurement Heart [id number] <Conclusion> Sinus rhythm with short HI Possible Left atrial enlargement Low voltage QRS Borderline ECG
== END 2018-01-30 10:04 | disposition home or self-care (01) ==
LOC: C.ER 09:30
DX: R07.89 Other chest pain (principal)

== ENCOUNTER 2018-03-15 08:46 | Emergency (ER) | payer MEDICAID ==
[2018-03-15 08:55] VITALS: BP 109/76; PULSE 84; RESP 16; TEMP 97.7; O2SAT 100; BMI 29.0
--- NOTE | 2018-03-15 09:28 | C.PDOC ---
History Of Present Illness 43 y/o female presents to the ED complaining of pain to the left upper gums for the last 2 days. Patient reports that she wears partial dentures. Otherwise she denies any blunt trauma, fever, or swelling. Time Seen by Provider: 03/15/18 08:58 Chief Complaint (Nursing): Dental Pain History Per: Patient History/Exam Limitations: no limitations Onset/Duration Of Symptoms: Days Current Symptoms Are (Timing): Still Present Past Medical History Reviewed: Historical Data, Nursing Documentation, Vital Signs Vital Signs: Last Vital Signs Temp 97.7 F 03/15/18 08:51 Pulse 84 03/15/18 08:51 Resp 16 03/15/18 08:51 BP 109/76 03/15/18 08:51 Pulse Ox 100 03/15/18 08:51 - Medical History PMH: Asthma Denies: Chronic Kidney Disease - [facility] Procedures OTHER SKIN & SUBQ I D (06/30/13) Family History: States: Unknown Family Hx - Social History Hx Tobacco Use: No Hx Alcohol Use: No Hx Substance Use: No - Immunization History Hx Tetanus Toxoid Vaccination: No Hx Influenza Vaccination: No Hx Pneumococcal Vaccination: No Review Of Systems Except As Marked, All Systems Reviewed And Found Negative. Constitutional: Negative for: Fever, Chills ENT: Positive for: Other (Gum pain). Negative for: Mouth Swelling Respiratory: Negative for: Shortness of Breath Neurological: Negative for: Headache Physical Exam - Physical Exam Appears: Well, Non-toxic, No Acute Distress Skin: Warm, Dry Head: Atraumatic, Normacephalic, Other (No facial swelling) Eye(s): bilateral: Normal Inspection, PERRL, EOMI Oral Mucosa: Moist Teeth: Normal Dentition Gingiva: No Swelling, No Tender, No Bleeding (or drainage), Other (0.5 cm area of gingival irritation) Neck: Normal ROM, Supple Lymphatic: No Adenopathy Respiratory: No Accessory Muscle Use, Other (No respiratory distress) Neurological/Psych: Oriented x3, Normal Speech, Normal Cranial Nerves ED Course And Treatment O2 Sat by Pulse Oximetry: 100 (RA) Pulse Ox Interpretation: Normal Medical Decision Making Medical Decision Making: Plan: Patient advised there is no abscess or signs of infection on exam. Plan is to d/c home with rx for viscous lidocaine for pain control. Advised patient to follow up with dentist without fail. Disposition - Disposition Referrals: Kris Wagner, DMD [Staff Provider] - Disposition: HOME/ ROUTINE Disposition Time: 09:26 Condition: STABLE Additional Instructions: Apply gel as needed for pain. Follow up with the dentist to check. Return if worsened. 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 - Scribe Statement The provider has reviewed the documentation as recorded by the Scribe Marjan Marks All medical record entries made by the Scribe were at my direction and personally dictated by me. I have reviewed the chart and agree that the record accurately reflects my personal performance of the history, physical exam, medical decision making, and the department course for this patient. I have also personally directed, reviewed, and agree with the discharge instructions and disposition.
== END 2018-03-15 09:50 | disposition home or self-care (01) ==
LOC: C.ER 08:46
DX: K06.8 Other specified disorders of gingiva and edentulous alveolar ridge (principal)

== ENCOUNTER 2018-05-11 17:42 | Emergency (ER) | payer MEDICAID ==
[2018-05-11 17:42] VITALS: BMI 29.7
--- NOTE | 2018-05-11 19:52 | C.PDOC ---
History Of Present Illness 43 y/o female presents to the ED for evaluation of an episode of dizziness and nausea, onset while at the store this afternoon. Associated with 1 episode of vomiting. Patient also complains of lower abdominal pain and back pain for the last 2-3 days. Of note, she reports (+) home test 2 weeks ago. LMP was 03/27/18. Patient is , usually follows with the clinic but has not seen an OB yet for current . She notes the dizziness and nausea recurred tonight, prompting this ED visit. Otherwise she denies any vaginal discharge, bleeding, rashes, URI symptoms, fever, or chills. She reports slightly decreased appetite for the last few days. 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 Time Seen by Provider: 05/11/18 19:22 Chief Complaint (Nursing): Abdominal Pain History Per: Patient History/Exam Limitations: no limitations Onset/Duration Of Symptoms: Intermittent Episodes Current Symptoms Are (Timing): Still Present Location Of Pain/Discomfort: Suprapubic Abnormal Vaginal Bleeding: No Last Menstral Period: 03/27/2018 : 5 Para: 4 Past Medical History Reviewed: Historical Data, Nursing Documentation, Vital Signs Vital Signs: Last Vital Signs Temp 98.1 F 05/11/18 17:55 Pulse 90 05/11/18 17:55 Resp 18 05/11/18 17:55 BP 106/72 05/11/18 17:55 Pulse Ox 99 05/11/18 17:55 - Medical History PMH: Asthma Denies: Chronic Kidney Disease - [facility] Procedures OTHER SKIN & SUBQ I D (06/30/13) Family History: States: Unknown Family Hx - Social History Hx Tobacco Use: No Hx Alcohol Use: No Hx Substance Use: No - Immunization History Hx Tetanus Toxoid Vaccination: No Hx Influenza Vaccination: No Hx Pneumococcal Vaccination: No Review Of Systems Constitutional: Negative for: Fever, Chills, Sweats ENT: Negative for: Nose Congestion Cardiovascular: Negative for: Chest Pain Respiratory: Negative for: Cough, Shortness of Breath Gastrointestinal: Positive for: Nausea, Vomiting, Abdominal Pain. Negative for: Diarrhea, Constipation Genitourinary: Negative for: Dysuria, Frequency, Vaginal Discharge, Vaginal Bleeding Musculoskeletal: Positive for: Back Pain Skin: Negative for: Rash Neurological: Positive for: Dizziness. Negative for: Weakness, Numbness, Change in Speech, Headache Physical Exam - Physical Exam Appears: Non-toxic, No Acute Distress Skin: Warm, Dry Head: Normacephalic Eye(s): bilateral: Normal Inspection, PERRL, EOMI Oral Mucosa: Moist Neck: Trachea Midline, Supple, Other (No meningeal signs- negative kernig's and brudzinskis) Chest: Symmetrical Cardiovascular: Rhythm Regular, No Friction Rub Respiratory: No Rales, No Rhonchi, No Wheezing Gastrointestinal/Abdominal: Soft, Tenderness (mild suprapubic tenderness), No Guarding, No Rebound Back: Normal Inspection, No Vertebral Tenderness, No Paraspinal Tenderness Extremity: Bilateral: Normal Color And Temperature, Normal ROM (x 4) Pulses: Left Dorsalis Pedis: Normal, Right Dorsalis Pedis: Normal Neurological/Psych: Oriented x3 Gait: Steady ED Course And Treatment - Laboratory Results Result Diagrams: 05/11/18 19:52 05/11/18 19:52 ECG: Interpreted By Me, Viewed By Me ECG Rhythm: Sinus Rhythm Interpretation Of ECG: No STEMI Rate From EC (bpm) O2 Sat by Pulse Oximetry: 99 (RA) Pulse Ox Interpretation: Normal - CT Scan/US OB/Transvag US Other Rad Studies (CT/US): Read By Radiologist, Radiology Report Reviewed CT/US Interpretation: Name:AMELIE ESCALANTE Exam Date:May 11, 2018 8:39:09 PM EST. Modality Type:SD\US\AL\SR. Description:US - OB REAL TIME WITH IMAGE DOCUMENTATION TRANSVAGINAL. Gender:F Laterality:Not applicable. :79 Referring Physician:ÁLVARO PEÑA. History. SUPRAPUBIC PAIN. Comparison. None available. Findings. Uterus. Single live intrauterine gestation. CRL equivalent to 6 wks/2 days] gestation. Gestational sac diameter equivalent to 5 wks/3 days gestation. age (Ultrasound estimated): 5 wks/6 days. Date of delivery (Ultrasound estimated) : 01/05/2019. Heart rate: 122 bpm. Uterus measures 10.4 x 6.5 x 6.2 cm. No mass. Subchorionic bleeding measures 0.8 x 0.8 x 1.3 cm. pole and yolk sac identified. Cervix. Long and closed measuring 4.9 cm. No cervical abnormality seen. Right Ovary. Measures 3.2 x 2.3 x 3.3 cm. No mass. Normal flow. Corpus luteal cyst measures 2.3 x 1.7 x 2.2 cm. Left Ovary. Measures 2 x 1.2 x 2.3 cm. No mass. Normal flow. Free Fluid. None. Other Findings. None. Impression. 1. Single live intrauterine gestation. 2. Subchorionic bleeding. 3. Right ovarian corpus luteal cyst. . Electronically signed on May 11, 2018 9:17:18 PM EST by: Jhonathan Gonzalez M.D., YELITZA Certified By ABR & CBCCT. Fellowship Trained MRI and CT Specialist Medical Decision Making Medical Decision Makin43 y/o F, currently with LMP of 03/27/18, presents with c/o episodes of dizziness and nausea today. Associated with vomiting x1 episode. Admits to decreased appetite, suprapubic pain, and back pain for last few days. No vaginal bleeding or discharge, no fevers or URI symptoms. Patient has not yet seen OB for this , she is . No cauda equina sxs. No vertebral tenderness. Neuro exam unremarkable. Plan: Will seek blood work, UA, and Transvaginal/OB US. 650 mg PO Tylenol given for pain. 1008 labs largely unremarkable outside of uti and BHCG UTI on labs, without sirs vitals. Likely outpt rx. Will seek 14k BHCG. Pending TVUS results pt in NAD. 1032 US resulted w/ IUP, Ovarian cyst informed pt regarding findings. Pain improved, tolerating clears Pt in NAD, no fever or CVAT clear for d/c home with return indications and f/u Disposition - Disposition Referrals: [facility] [Outside] [facility] [Outside] [facility] [Outside] [facility] [Outside] Saida Mejia DO [Staff Provider] - Disposition: HOME/ ROUTINE Disposition Time: 22:15 Condition: GOOD Prescriptions: Nitrofurantoin Macrocrystal [Nitrofurantoin Macrocrystals] 100 mg PO BID 5 Days #10 cap Instructions: Pitfalls After Age 35, Urinary Tract Infection, Adult (DC), Stomach Pain in Early Forms: [employer] (Tajik) - Clinical Impression Clinical Impression: UTI (urinary tract infection), Abdominal pain in - Scribe Statement The provider has reviewed the documentation as recorded by the Norbertoibneha Marks Provider Attestation: All medical record entries made by the Ebony were at my direction and personally dictated by me. I have reviewed the chart and agree that the record accurately reflects my personal performance of the history, physical exam, medical decision making, and the department course for this patient. I have also personally directed, reviewed, and agree with the discharge instructions and disposition.
[2018-05-11] MEDS ORDERED: Sodium Chloride 0.9% 1,000 ML IV ONE (20:05)
[2018-05-11 20:10] LABS: SQUAMOUS EPITHIAL 6 /hpf (0-5); URINE BACTERIA RARE (<OCC); URINE BILIRUBIN NEGATIVE (NEGATIVE); URINE BLOOD NEGATIVE (NEGATIVE); URINE CLARITY Hazy (Clear); URINE COLOR Yellow (YELLOW); URINE GLUCOSE (UA) NORMAL (Normal); URINE LEUKOCYTE ESTERASE 1+ Leu/uL (Negative); URINE PROTEIN 1+ mg/dL (NEGATIVE); URINE UROBILINOGEN NORMAL mg/dL (0.2-1.0)
[2018-05-11 20:12] LABS: BASO % 0.4 % (0.0-2.0); EOS % 0.2 % (0.0-4.0); LYMPH # 0.7 K/uL (1.0-4.3); MEAN CELL VOLUME 71.4 fL (81.0-99.0); MEAN CORPUSCULAR HEMOGLOBIN 22.5 pg (27.0-31.0); MEAN CORPUSCULAR HGB CONC 31.5 g/dL (33.0-37.0); MEAN PLATELET VOLUME 8.3 fL (7.2-11.7); MONO # 0.4 K/uL (0.0-0.8); NEUT # 2.1 K/uL (1.8-7.0); NEUT % 65.4 % (50.0-75.0); NRBC % 0.2 % (0.0-2.0); RBC 4.91 Mil/uL (3.80-5.20); RED CELL DISTRIBUTION WIDTH 15.3 % (11.5-14.5); WHITE BLOOD COUNT 3.2 K/uL (4.8-10.8)
[2018-05-11 20:25] LABS: ALB/GLOB RATIO 1.3 (1.0-2.1); ALBUMIN 4.6 g/dL (3.5-5.0); ALT/SGPT 17 U/L (9-52); AST/SGOT 23 U/L (14-36); BLOOD UREA NITROGEN 15 mg/dL (7-17); CALCIUM 8.8 mg/dl (8.6-10.4); GFR NON-AFRICAN AMERICAN > 60
[2018-05-11 22:46] VITALS: BP 98/64; PULSE 78; RESP 16; TEMP 98
[2018-05-11 22:55] VITALS: O2SAT 99
--- NOTE | 2018-05-12 10:22 | US ---
Date of service: 05/11/2018 Indication: suprapubic pain Comparison: Transvaginal pelvic ultrasound performed 03/14/15 Technique: Transvaginal pelvic ultrasound Findings: Uterus measures approximately 10.4 x 6.5 x 6.2 cm. Anteverted. Cervix length measures approximately 4 9 cm. There is a single intrauterine fetus present. 3 mm yolk sac. The gestational sac measures 1.3 cm and is compatible with a gestational age of 5 weeks 3 days. The crown-rump length measures 0.5 cm and is compatible with a gestational age of 6 weeks 2 days. Evidence of 0.8 x 0.8 x 1.3 cm subchorionic hemorrhage. There is heart motion which measured 122.2 BPM. The right ovary measures 3.2 x 2.3 x 3.3 cm. 2.3 x 1.7 x 2.2 cm probable right ovarian corpus luteal cyst. The left ovary measures 2.0 x 1.2 x 2.3 cm. Blood flow was demonstrated to both ovaries. Impression: Live single intrauterine with estimated gestational age 5 weeks 3 days by gestational sac calculation and 6 weeks 2 days by crown-rump length calculation. heart rate 122.2 bpm. Evidence of 0.8 x 0.8 x 1.3 cm subchorionic hemorrhage. Advise an anomaly screen at 16-18 weeks gestational age 2.3 x 1.7 x 2.2 cm probable right corpus luteal cyst. Preliminary impression was provided by [employer].
--- NOTE | 2018-05-14 22:28 | CARD ---
APPROVED REPORT Date of service: 05/11/2018 EKG Measurement Heart [id number] <Conclusion> Sinus rhythm with short OH Otherwise normal ECG
== END 2018-05-11 23:00 | disposition home or self-care (01) ==
LOC: C.ER 17:42
DX: O23.41 Unspecified infection of urinary tract in pregnancy, first trimester (principal); R10.9 Unspecified abdominal pain; Z3A.01 Less than 8 weeks gestation of pregnancy

== ENCOUNTER 2018-06-09 09:47 | Emergency (ER) | payer MEDICAID ==
[2018-06-09 09:47] VITALS: BMI 29.7
[2018-06-09 09:52] VITALS: BP 114/78; PULSE 89; RESP 20; TEMP 98.3; O2SAT 99
--- NOTE | 2018-06-09 12:48 | C.PDOC ---
History Of Present Illness 43 year old female comes in to ED complaining of left hip and left knee pain after she got out of her car and twisted her leg earlier today. Patient reports she fell to the ground but didnt hit her head. Denies any numbness or tingling to the leg and is able to ambulate. Time Seen by Provider: 06/09/18 09:49 Chief Complaint (Nursing): Lower Extremity Problem/Injury History Per: Patient History/Exam Limitations: no limitations Onset/Duration Of Symptoms: Hrs Current Symptoms Are (Timing): Still Present Past Medical History Reviewed: Historical Data, Nursing Documentation, Vital Signs Vital Signs: Last Vital Signs Temp 98.3 F 06/09/18 09:51 Pulse 89 06/09/18 09:51 Resp 20 06/09/18 09:51 BP 114/78 06/09/18 09:51 Pulse Ox 99 06/09/18 09:51 - Medical History PMH: Asthma Denies: Chronic Kidney Disease - [facility] Procedures OTHER SKIN & SUBQ I D (06/30/13) Family History: States: No Known Family Hx - Social History Hx Tobacco Use: No Hx Alcohol Use: No Hx Substance Use: No - Immunization History Hx Tetanus Toxoid Vaccination: No Hx Influenza Vaccination: No Hx Pneumococcal Vaccination: No Review Of Systems Except As Marked, All Systems Reviewed And Found Negative. Constitutional: Negative for: Fever, Chills Gastrointestinal: Negative for: Vomiting Musculoskeletal: Positive for: Other (Left hip and left knee pain). Negative for: Neck Pain Neurological: Negative for: Numbness, Other (LOC) Physical Exam - Physical Exam Appears: Non-toxic, No Acute Distress Skin: Warm, Dry Head: Atraumatic, Normacephalic Eye(s): bilateral: Normal Inspection Oral Mucosa: Moist Neck: Supple Cardiovascular: Rhythm Regular, No Murmur Respiratory: Normal Breath Sounds, No Rales, No Rhonchi, No Wheezing Extremity: Tenderness (to the left anterior hip and to the anterior aspect of the left knee), No Pedal Edema, No Swelling Extremity: Bilateral: Normal Color And Temperature, Normal ROM Neurological/Psych: Oriented x3, Normal Speech ED Course And Treatment O2 Sat by Pulse Oximetry: 99 (RA) Pulse Ox Interpretation: Normal - Other Rad Left Knee XR X-Ray: Read By Radiologist Interpretation: FINDINGS: BONES: Bone alignment and mineralization are normal. There is no acute displaced fracture or bone destruction. JOINTS: Normal. No osteoarthritis. JOINT EFFUSION: There is a small suprapatellar joint effusion. OTHER FINDINGS: None. IMPRESSION: No acute fracture or dislocation. Small suprapatellar joint effusion. Hip/Pelvis XR X-Ray: Read By Radiologist Interpretation: FINDINGS: BONES: Bone alignment and mineralization are normal. There is no acute displaced fracture or bone destruction. JOINTS: The joint spaces are preserved. SOFT TISSUES: Normal. OTHER FINDINGS: None. IMPRESSION: No acute displaced fracture or dislocation. Please note occult fractures cannot be excluded on plain radiographs. If there is a persistent clinical concern, an MRI of the hip may be performed for further evaluation. Medical Decision Making Medical Decision Making: Plan: --Left Knee XR --Tylenol PO --Left Hip XR Disposition - Disposition Referrals: Nicole Mcneil, [Non-Staff] - Disposition: HOME/ ROUTINE Disposition Time: 12:40 Condition: GOOD Additional Instructions: AVA KINSEY, thank you for letting us take care of you today. The emergency medical care you received today was directed at your acute symptoms. If you were prescribed any medication, please fill it and take as directed. It may take several days for your symptoms to resolve. Return to the Emergency Department if your symptoms worsen, do not improve, or if you have any other problems. Please contact your doctor or call one of the physicians/clinics you have been referred to that are listed on the Patient Visit Information form that is included in your discharge packet. Bring any paperwork you were given at discharge with you along with any medications you are taking to your follow up visit. Our treatment cannot replace ongoing medical care by a primary care provider outside of the emergency department. Thank you for allowing the [facility] team to be part of your care today. You can take tylenol for pain. Follow up with your primary care doctor this week for re-evaluation and further management. Instructions: Knee Sprain (DC), Hip Pain (DC) Forms: [employer] ([employer]) - Clinical Impression Clinical Impression: Knee sprain, Hip pain - Scribe Statement The provider has reviewed the documentation as recorded by the Ebony Coronado Provider Attestation: All medical record entries made by the Norbertoibneha were at my direction and personally dictated by me. I have reviewed the chart and agree that the record accurately reflects my personal performance of the history, physical exam, medical decision making, and the department course for this patient. I have also personally directed, reviewed, and agree with the discharge instructions and disposition.
--- NOTE | 2018-06-09 12:50 | RAD ---
Date of service: 06/09/2018 PROCEDURE: Left Knee Radiographs. HISTORY: Pain. COMPARISON: None. FINDINGS: BONES: Bone alignment and mineralization are normal. There is no acute displaced fracture or bone destruction. JOINTS: Normal. No osteoarthritis. JOINT EFFUSION: There is a small suprapatellar joint effusion. OTHER FINDINGS: None. IMPRESSION: No acute fracture or dislocation. Small suprapatellar joint effusion.
== END 2018-06-09 12:54 | disposition home or self-care (01) ==
LOC: C.ER 09:47
DX: S83.92XA Sprain of unspecified site of left knee, initial encounter (principal); W18.30XA Fall on same level, unspecified, initial encounter; M25.552 Pain in left hip